=== PATIENT | female | born 1955 | race Two or more races ===

== ENCOUNTER 2020-08-11 08:25 | Outpatient (CLI) | payer OTHER | END 2020-08-11 08:35 | disposition home or self-care (01) | LOC: RAD 08:25 | DX: M25.552 Pain in left hip (principal) ==

== ENCOUNTER 2022-11-08 08:04 | Outpatient (CLI) | payer OTHER | END 2022-11-08 08:10 | disposition home or self-care (01) | LOC: TOM 08:04 | PROVIDERS: ATTEND Obstetrics & Gynecology | DX: C55 Malignant neoplasm of uterus, part unspecified (principal) | CPT/HCPCS: 72197; 74183; Q9965 ==